=== PATIENT | female | born 1970 | race Caucasian/White ===

== ENCOUNTER 2018-07-22 10:15 | Emergency (ER) | payer OTHER ==
[~2018-07-22] VITALS: Ht 170.2 cm; Wt 119.3 kg
[2018-07-22 10:19] VITALS: Ht 170.2 cm; Wt 119.3 kg
[2018-07-22 11:57] VITALS: BP 107/65
== END 2018-07-22 11:57 | disposition home or self-care (01) ==
LOC: ED 10:15
DX: S60.452A Superficial foreign body of right middle finger, initial encounter (principal); I10 Essential (primary) hypertension; E11.9 Type 2 diabetes mellitus without complications; Z88.2 Allergy status to sulfonamides; W45.8XXA Other foreign body or object entering through skin, initial encounter; Y93.89 Activity, other specified; Y92.89 Other specified places as the place of occurrence of the external cause; Y99.8 Other external cause status
CPT/HCPCS: J2001

== ENCOUNTER 2020-09-03 11:28 | Emergency (ER) | payer OTHER ==
[~2020-09-03] VITALS: Ht 170.2 cm; Wt 124.3 kg
[2020-09-03 11:57] VITALS: BP 194/85; Ht 170.2 cm; Wt 124.3 kg
[2020-09-03] MEDS ORDERED: KEFLEX500 M1 PO (12:34)
== END 2020-09-03 12:49 | disposition home or self-care (01) ==
LOC: ED 11:28
DX: T81.89XD Other complications of procedures, not elsewhere classified, subsequent encounter (principal); I10 Essential (primary) hypertension; E11.9 Type 2 diabetes mellitus without complications; Z48.01 Encounter for change or removal of surgical wound dressing; Z88.2 Allergy status to sulfonamides